=== PATIENT | female | born 1960 ===

== ENCOUNTER 2018-05-12 08:13 | Emergency (ER) | payer OTHER ==
[~2018-05-12] VITALS: Ht 160 cm; Wt 74.8 kg
[2018-05-12] MEDS ORDERED: PROTONIX40 MG (08:18)
[2018-05-12] MEDS ORDERED: CYMBALTA60 MG (08:18)
[2018-05-12] MEDS ORDERED: VIT C-ROSE HIP500 MG (08:19)
== END 2018-05-12 14:06 | disposition home or self-care (01) ==
LOC: ER 08:13
DX: G43.909 Migraine, unspecified, not intractable, without status migrainosus (principal)

== ENCOUNTER 2018-11-07 15:57 | Outpatient (CLI) | payer OTHER ==
[~2018-11-07 15:57] MED LIST: CYMBALTA60 MG; PROTONIX40 MG; VIT C-ROSE HIP500 MG
== END 2018-11-07 16:52 | disposition home or self-care (01) ==
LOC: LAB 15:57
DX: E55.0 Rickets, active (principal)